=== PATIENT | female | born 1950 | race Two or more races ===

== ENCOUNTER → 2016-05-10 | Outpatient (CLI) | payer MEDICARE ==
[2016-05-10 13:23] LABS: BUN 12 mg/dL (7-18)
[2016-05-10 13:26] LABS: GFR (ESTIMATED) 100 ML/MIN (59-)
== END ==
LOC: MAY-LAB 12:54
PROVIDERS: Internal Medicine
DX: E78.5 Hyperlipidemia, unspecified (principal)